=== PATIENT | female | born 1990 | race Caucasian/White ===

== ENCOUNTER 2017-06-23 21:19 | Emergency (ER) | payer BC | END 2017-06-23 21:30 | disposition left against medical advice (07) | LOC: ER 21:19 | DX: Z53.20 Procedure and treatment not carried out because of patient's decision for unspecified reasons (principal) ==

== ENCOUNTER 2019-07-09 17:33 | Emergency (ER) | payer BC, OTHER ==
[2019-07-09] MEDS ORDERED: KETOROLAC 30 MG/ML VIAL IM ONE (17:56)
--- NOTE | 2019-07-09 18:03 | Emergency Department Record ---
History of Present Illness - General Chief Complaint: Back Pain/Injury Stated Complaint: LOWER BACK PAIN/LEG NUMB Time Seen by Provider: 07/09/19 17:43 Source: Patient Mode of Arrival: Ambulatory Limitations: No limitations - History of Present Illness Initial Comments: The patient is here due to lower back pain for 2 days that seem to be worsening this afternoon. She also states this afternoon the pain seems to be traveling down the sides of both legs and she is having numbness to her thighs. She also states her legs gave out today and she fell to the floor due to the weakness. She is able to ambulate but does not feel like she is walking normally. There is no hx of trauma, fever, chills, IVDA, , or incontinence. MD Complaint: Back pain Onset/Timin -: Days(s) Place: Other Radiation: Left leg, Right leg Severity scale (1-10): 5 Worsens With: Movement, Walking Treatments Prior to Arrival: NSAIDS Treatment Prior to Arrival Comment:: 800 mg ibuprofen 1500 - Related Data Home Medications Medication Instructions Recorded Confirmed Last Taken Fexofenadine/Pseudoephedrine 1 each PO DAILY 07/09/19 07/09/19 07/09/19 [Caitlin-D 12 Hour Tablet] Previous Rx's Medication Instructions Recorded Cyclobenzaprine HCl [Flexeril] 10 mg PO TID PRN #20 tablet 07/09/19 Naproxen [Naprosyn] 500 mg PO BID #14 tablet. 07/09/19 Allergies Allergy/AdvReac Type Severity Reaction Status Date / Time No Known Drug Allergies Allergy Verified 04/02/16 22:37 Travel Screening - Travel/Exposure Within Last 30 Days Have you traveled within the last 30 days?: No - Travel/Exposure Within Last Year Have you traveled outside the [place] 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) - RESPIRATORY Hx Respiratory Disorders: Yes Hx Asthma: Yes - CARDIOVASCULAR Hx Cardio Disorders: No - NEURO Hx Neuro Disorders: No Hx Headaches: Yes (hx of migraines) - GI Hx GI Disorders: Yes Hx Irritable Bowel: Yes - Hx Genitourinary Disorders: Yes Comment:: Polycystic ovaries - ENDOCRINE Hx Endocrine Disorders: No - MUSCULOSKELETAL Hx Musculoskeletal Disorders: Yes Hx Back Injury: Yes - PSYCH Hx Psych Problems: Yes Hx Anxiety: Yes - HEMATOLOGY/ONCOLOGY Hx Hematology/Oncology Disorders: No Family Medical History Any Significant Family History?: No Hx Diabetes: Father, Mother Physical Exam - General General Appearance: Alert, Oriented x3, Cooperative, No acute distress - Head Head exam: Atraumatic, Normocephalic - Eye Eye exam: Normal appearance, PERRL - Neck Neck exam: Normal inspection, Full ROM. negative: Tenderness - Respiratory Respiratory exam: Normal lung sounds bilaterally. negative: Respiratory distress - Cardiovascular Cardiovascular Exam: Regular rate, Normal rhythm, Normal heart sounds - GI/Abdominal GI/Abdominal exam: Soft, Normal bowel sounds. negative: Rebound, Rigid, Tenderness - Extremities Extremities exam: Normal inspection, Full ROM, Normal capillary refill, Other (Neg SLR bilaterally.). negative: Tenderness - Back Back exam: Reports: Normal inspection, Paraspinal tenderness (Lower lumbar.). Denies: Vertebral tenderness - Neurological Neurological exam: Alert, Normal gait, Oriented X3, Reflexes normal (The bilateral patellar reflexes are 2+ and equal and the achilles are 1+ and equal. ), Other (The patient's post-void residual bladder capacity was < 100 mls. The patient also seemed to have decreased rectal tone and decreased sensation in the area.). negative: Abnormal gait, Altered, Motor sensory deficit (The lower extremity motor exam is 4+/5 due to pain with normal sensation below the knees. The patient has decreased sensation to the thighs laterally to light touch. ) - Psychiatric Psychiatric exam: negative: Anxious Course Vital Signs 07/09/19 17:37 Temperature 98.1 F Pulse Rate 97 H Respiratory 16 Rate Blood Pressure 132/99 Pulse Ox 99 - Reevaluation(s) Reevaluation #1: The patient is doing much better at this time and states the pain is much improved. Due to the nature of the patient's complaints and the weakness with decreased rectal tone I did recommend transfer for an MRI. The reason I explained to the patient is to make sure there is no cauda equina process or surgical emergency causing the symptoms. The patient is refusing that plan and would like to go home to see her PCP. I did explain that by NOT getting an MRI tonight she could risk having permanent chronic pain, leg numbness, weakness, incontinence and sexual dysfunction. The patient understands and accepts the risks and will see her family doctor for recheck. She presently has proper decision making capacity and understands the risks of refusing and the fact we cannot be held liable for NOT ordering the tests. She also was instructed to return to the ER for any worsening symptoms or if she changes her mind about the testing. 07/09/19 18:40 Medical Decision Making - Data Complexity MDM Data: Labs Ordered and/or Reviewed Disposition Disposition: Discharge Clinical Impression: Low back pain Qualifiers: Chronicity: acute Back pain laterality: unspecified Sciatica presence: unspecified whether sciatica present Qualified Code(s): M54.5 - Low back pain Disposition: Against Medical Advice Condition: (2) Stable Instructions: Low Back Strain (ED) Additional Instructions: Please take the Naprosyn and Flexeril as directed. Please see your family doctor for recheck tomorrow. Return to the ER for any worsening symptoms or if you change your mind about the MRI. Prescriptions: Cyclobenzaprine HCl [Flexeril] 10 mg PO TID PRN #20 tablet PRN Reason: Pain Naproxen [Naprosyn] 500 mg PO BID #14 tablet.dr Forms: Patient Portal Access Time of Disposition: 18:45 Quality - Quality Measures Quality Measures: N/A - Blood Pressure Screening View Details: Yes Does Patient Have Any of the Following: No Blood Pressure Classification: Hypertensive Reading Systolic Measurement: 132 Diastolic Measurement: 99 Screening for High Blood Pressure: < First Hypertensive BP, F/U Documented > [G8950] First Hypertensive Follow-up Interventions: Referral to alternative/primary care provider.
[2019-07-09 18:12] LABS: URINE BILIRUBIN NEGATIVE (NEGATIVE); URINE BLOOD NEGATIVE (NEGATIVE); URINE COLOR YELLOW; URINE GLUCOSE (UA) NEGATIVE (NEGATIVE); URINE KETONE NEGATIVE (NEGATIVE); URINE LEUKOCYTE ESTERASE TRACE (NEGATIVE); URINE NITRITE NEGATIVE (NEGATIVE); URINE PROTEIN NEGATIVE (NEGATIVE); URINE UROBILINOGEN 0.2 E.U./dL (0.20 - 1.00)
[2019-07-09 18:13] LABS: URINE APPEARANCE CLOUDY
[2019-07-09 18:15] LABS: HCG,QUALITATIVE URINE NEGATIVE (NEGATIVE)
[2019-07-09 18:18] LABS: URINE BACTERIA 2+; URINE EPITHELIAL CELLS 21 - 35 (FEW); URINE RBC NONE SEEN (NONE SEEN); URINE WBC 0 - 2 (0-2/hpf)
== END 2019-07-09 19:11 | disposition left against medical advice (07) ==
LOC: ER 17:33
DX: M54.5 Low back pain (principal); R20.0 Anesthesia of skin; R29.898 Other symptoms and signs involving the musculoskeletal system; R19.8 Other specified symptoms and signs involving the digestive system and abdomen
CPT/HCPCS: 99284 ×2; 96372; 81001; 81025; J1885